=== PATIENT | male | born 1990 | race Caucasian/White ===

== ENCOUNTER 2018-05-25 14:48 | Emergency (ER) | payer OTHER, SELFPAY ==
[2018-05-25 14:55] VITALS: BP 146/92; PULSE 86; RESP 18; TEMP 36.7; O2SAT 100; BMI 25.5
[2018-05-25 15:29] LABS: Hematocrit 45.4 % (41-53); Hemoglobin 15.6 g/dL (13.5-17.5); Mean Corpuscular HGB Conc 34.3 % (30-36); Mean Corpuscular Hemoglobin 30.7 PG (26-34); Mean Corpuscular Volume 89.4 fL (80-100); Platelet Count 236 X10^3/uL (150-400); Red Blood Cell Count 5.07 X10^6/uL (4.5-5.9); Red Cell Distribution Width 12.9 % (11.6-14.8); White Blood Cell Count 4.4 X10^3/uL (4.5-11.0)
[2018-05-25 15:47] LABS: Alanine Aminotransferase 40 IU/L (21-72); Albumin 4.9 g/dL (3.5-5.0); Albumin Globulin Ratio 1.9 (1.0-2.8); Alkaline Phosphatase 47 U/L (38-126); Aspartate Aminotransferase 40 IU/L (17-59); BUN Creatinine Ratio 12.9 (6-22); Bilirubin Total 0.5 mg/dL (0.2-1.3); Blood Urea Nitrogen 18 mg/dL (9-20); Calcium 9.8 mg/dL (8.4-10.2); Carbon Dioxide 32 mmol/L (22-32); Chloride 100 mmol/L (98-107); Creatine Kinase 706 U/L (55-170); Estimated Glomerular Filt Rate > 60.0 mL/min (>60); Globulin 2.6 g/dL (1.7-4.1); Glucose 90 mg/dL (70-100); HEMOLYSIS < 15 (0-50); Potassium 4.4 mmol/L (3.4-5.1); Sodium 142 mmol/L (137-145); Total Protein 7.5 g/dL (6.3-8.2)
[2018-05-25 16:00] LABS: Troponin I < 0.012 ng/mL (0.01-0.034)
[2018-05-25 16:02] LABS: CKMB % Relative Index 0.3 % (1.5-5.0); Creatine Kinase MB 2.03 ng/mL (<2.37)
[2018-05-25 17:05] LABS: Neutrophils Absolute Manual 2860 /uL (3000-5900); Total Cells Counted 100
[2018-05-25 17:06] LABS: RBC Morphology Normal Morphology
[2018-05-25 19:59] VITALS: BP 133/70; PULSE 55; RESP 13; O2SAT 98
--- NOTE | 2018-05-25 19:59 | DI.RAD.S_ITS ---
PROCEDURE: XR CHEST 1V INDICATIONS: Heart palpitations earlier today TECHNIQUE: One view of the chest was acquired. COMPARISON: None. FINDINGS: Surgical changes and devices: None. Lungs and pleura: No pleural effusions or pneumothorax. Lungs are clear. Mediastinum: Mediastinal contours appear normal. Heart size is normal. Bones and chest wall: No suspicious bony lesions. Overlying soft tissues appear unremarkable. IMPRESSION: 1. No acute cardiopulmonary disease. Dictated by: Ivan Jones M.D. on 05/25/2018 at 21:30 Approved by: Ivan Jones M.D. on 05/25/2018 at 21:31
--- NOTE | 2018-05-25 20:13 | PC.NURSE ---
PO fluids given to pt when placed in ED 7
--- NOTE | 2018-05-25 20:22 | PC.NURSE ---
Introduced self to pt. Pt w/o any complaints at this time. On bedside tele monitor x3. Will continue to monitor. Pt updated on POC.
[2018-05-25 20:55] LABS: Creatine Kinase 664 U/L (55-170)
[2018-05-25 21:10] LABS: CKMB % Relative Index 0.3 % (1.5-5.0); Creatine Kinase MB 1.69 ng/mL (<2.37)
--- NOTE | 2018-05-25 21:38 | ED_ITS ---
HPI - Arrhythmia/Palpitations <PADDY Courtney - Last Filed: 05/25/18 22:31> General Chief Complaint: Arrhythmia/Palpitations Stated Complaint: heart started racing,L arm numbness Time Seen by Provider: 05/25/18 18:10 History of Present Illness HPI narrative: 27-year-old healthy male here for complaint of feeling like his heart was racing earlier today. He was working out and just finished doing strength training lifting weights when he had 10 min of this sensation. Then it went away. He also states that he felt like he had tingling into his left arm. No nausea vomiting. He denied any chest pain. No shortness of breath symptoms have not returned since that initial episode. He does state that he has had this sensation few times in the past last time was 2 months ago he denies any stressors or relievers of his symptoms. No other concerns or complaints. MD complaint: heart racing Related Data Home Medications Medication Instructions Recorded Confirmed No Known Home Medications 05/25/18 05/25/18 Allergies Allergy/AdvReac Type Severity Reaction Status Date / Time No Known Drug Allergies Allergy Verified 05/25/18 15:02 Review of Systems <PADDY Courtney - Last Filed: 05/25/18 22:31> Constitutional Denies chills, Denies fever(s), Denies lethargy and Denies weakness Eyes Denies change in vision, Denies eye discharge, Denies irritation and Denies loss of vision ENT Ears, Nose, Mouth, and Throat: Denies change in voice, Denies neck pain and Denies sore throat Cardiovascular Denies chest pain, Reports rapid heart rate, Denies lightheadedness, Denies palpitations, Denies dyspnea, Denies dyspnea on exertion and Denies orthopnea Respiratory Denies cough, Denies dyspnea, Denies dyspnea on exertion and Denies wheezing Gastrointestinal Gastrointestinal: Denies abdominal pain, Denies change in bowel habits, Denies diarrhea, Denies nausea and Denies vomiting Genitourinary Denies hematuria, Denies flank pain, Denies urinary incontinence and Denies urinary urgency Musculoskeletal Denies neck pain Integumentary/Breasts Denies pruritus, Denies erythema, Denies rash and Denies wounds Neurologic Denies confusion, Denies loss of vision and Denies weakness Psychiatric Denies anxiety, Denies confusion, Denies depression, Denies homicidal ideation and Denies suicidal ideation Endocrine Denies palpitations Hematologic/Lymphatic Denies easy bruising Allergic/Immunologic Denies wheezing Exam <PADDY Courtney - Last Filed: 05/25/18 22:31> Initial Vital Signs Initial Vital Signs: Vital Signs Temperature 98.1 F 05/25/18 14:55 Pulse Rate 86 05/25/18 14:55 Respiratory Rate 18 05/25/18 14:55 Blood Pressure 146/92 H 05/25/18 14:55 Pulse Oximetry 100 05/25/18 14:55 Const General: cooperative and well developed Nutritional Appearance: well nourished Orientation: alert, awake, oriented x3 and not confused HENAR Mouth: oral mucosae normal and moist mucous membranes Eyes General: appearance normal, both eyes and all related structures Conjunctivae: conjunctivae normal Sclera: sclerae normal Pupils: PERRL EOM: EOM intact bilaterally Neck Neck: JVD Chest Chest: normal inspection of the chest Resp Effort & Inspection: normal respiratory effort, able to speak in complete sentences, no respiratory distress and no use of accessory muscles Auscultation: clear to auscultation bilaterally, no rales, no rhonchi and no wheezes Cardio Rate: regular rate Rhythm: regular rhythm Heart Sounds: no click, no gallops, no murmurs and no rubs Pulses: normal peripheral pulses GI Inspection: non-distended Palpation: soft, no hepatosplenomegaly, No guarding, No pulsatile mass and No tender Auscultation: normal bowel sounds Back/Spine/Pelvis Back: CVA tenderness Skin General: no rashes or lesions noted, No jaundice and No petechiae Neuro General: alert, oriented x3, gait normal and no focal motor deficits Speech: speech normal Psych Attitude: cooperative Thought Content: suicidality <Jessica Palacios DO - Last Filed: 05/27/18 18:49> Initial Vital Signs Initial Vital Signs: Vital Signs Temperature 98.1 F 05/25/18 14:55 Pulse Rate 86 05/25/18 14:55 Respiratory Rate 18 05/25/18 14:55 Blood Pressure 146/92 H 05/25/18 14:55 Pulse Oximetry 100 05/25/18 14:55 Course <PADDY Courtney - Last Filed: 05/25/18 22:31> Orders Ordered: ED Orders 05/25/18 15:21 CBC manual diff [Complete Blood Count MAN DIFF] Stat Comprehensive Metabolic Panel Stat Troponin & CK Cardiac Panel Stat 05/25/18 19:59 XR chest 1V Stat 05/25/18 20:26 Troponin & CK Cardiac Panel Stat Vital Signs - 8 hr 05/25/18 14:55 05/25/18 19:59 05/25/18 22:10 Temperature 98.1 F Pulse Rate 86 55 L 60 Respiratory Rate 18 13 15 Blood Pressure 146/92 H Blood Pressure [Left Arm] 133/70 H 129/76 H Pulse Oximetry 100 98 100 <Jessica Palacios DO - Last Filed: 05/27/18 18:49> Orders Ordered: ED Orders 05/25/18 15:21 CBC manual diff [Complete Blood Count MAN DIFF] Stat Comprehensive Metabolic Panel Stat Troponin & CK Cardiac Panel Stat 05/25/18 19:59 XR chest 1V Stat 05/25/18 20:26 Troponin & CK Cardiac Panel Stat Vital Signs - 8 hr 05/25/18 14:55 05/25/18 19:59 05/25/18 22:10 Temperature 98.1 F Pulse Rate 86 55 L 60 Respiratory Rate 18 13 15 Blood Pressure 146/92 H Blood Pressure [Left Arm] 133/70 H 129/76 H Pulse Oximetry 100 98 100 MDM - Arrhythmia/Palpitations <PADDY Courtney - Last Filed: 05/25/18 22:31> Lab Data Result diagrams: 05/25/18 15:21 05/25/18 15:21 Lab Results 05/25/18 05/25/18 05/25/18 Range/Units 15:21 15:21 20:26 WBC 4.4 L (4.5-11.0) X10^3/uL RBC 5.07 (4.5-5.9) X10^6/uL Hgb 15.6 (13.5-17.5) g/dL Hct 45.4 (41-53) % MCV 89.4 (80-100) fL MCH 30.7 (26-34) PG MCHC 34.3 (30-36) % RDW 12.9 (11.6-14.8) % Plt Count 236 (150-400) X10^3/uL Total Counted 100 Seg Neutrophils % 64.0 (38-70) % Band Neutrophils % 1.0 L (3-7) % Lymphocytes % (Manual) 28.0 (25-45) % Monocytes % (Manual) 6.0 (2-11) % Eosinophils % (Manual) 1.0 L (2-4) % Neutrophils # (Manual) 2860 L (8821-1972) /uL RBC Morphology Normal morphology Sodium 142 (137-145) mmol/L Potassium 4.4 (3.4-5.1) mmol/L Chloride 100 (98-107) mmol/L Carbon Dioxide 32 (22-32) mmol/L BUN 18 (9-20) mg/dL Creatinine 1.40 H (0.66-1.25) mg/dL Estimated GFR > 60.0 (>60) mL/min BUN/Creatinine Ratio 12.9 (6-22) Glucose 90 (70-100) mg/dL Calcium 9.8 (8.4-10.2) mg/dL Total Bilirubin 0.5 (0.2-1.3) mg/dL AST 40 (17-59) IU/L ALT 40 (21-72) IU/L Alkaline Phosphatase 47 (38-126) U/L Total Creatine Kinase 706 H 664 H (55-170) U/L CK-MB (CK-2) 2.03 1.69 (<2.37) ng/mL CK-MB (CK-2) Rel Index 0.3 L 0.3 L (1.5-5.0) % Troponin I < 0.012 < 0.012 (0.01-0.034) ng/mL Total Protein 7.5 (6.3-8.2) g/dL Albumin 4.9 (3.5-5.0) g/dL Globulin 2.6 (1.7-4.1) g/dL Albumin/Globulin Ratio 1.9 (1.0-2.8) Imaging Data Chest x-ray: Radiologist's impression: PROCEDURE: XR CHEST 1V INDICATIONS: Heart palpitations earlier today TECHNIQUE: One view of the chest was acquired. COMPARISON: None. FINDINGS: Surgical changes and devices: None. Lungs and pleura: No pleural effusions or pneumothorax. Lungs are clear. Mediastinum: Mediastinal contours appear normal. Heart size is normal. Bones and chest wall: No suspicious bony lesions. Overlying soft tissues appear unremarkable. IMPRESSION: 1. No acute cardiopulmonary disease. Dictated by: Ivan Jones M.D. on 05/25/2018 at 21:30 Approved by: Ivan Jones M.D. on 05/25/2018 at 21:31 ECG Data Interpretation: EKG shows normal sinus rhythm with no ST elevation or depression. No ectopy. Ventricular rate of 75. Pr interval of 168. QRS duration of 80 QT of 358 MDM Narrative Medical decision making narrative: CK of 1st evaluation was elevated at 700. Troponin was negative. Repeat CK was elevated however reduced to 660. Believe the CK is elevated due to strength conditioning today. EKG was unremarkable. Chest x-ray was unremarkable. Both sets of troponin were negative. Differential between a brief episode of a arrhythmia or anxiety related. Recommend patient follow up with primary care provider in the next day or 2 for re-evaluation and referral for stress test/tread mill test to see if his symptoms are reproducible. Also recommended BETINA testing to rule out that this is anxiety related. Return emergency room for any worsening symptoms. <Jessica Palacios, - Last Filed: 05/27/18 18:49> Lab Data Attestation: I reviewed the patient's lab results. Lab Results 05/25/18 05/25/18 05/25/18 Range/Units 15:21 15:21 20:26 WBC 4.4 L (4.5-11.0) X10^3/uL RBC 5.07 (4.5-5.9) X10^6/uL Hgb 15.6 (13.5-17.5) g/dL Hct 45.4 (41-53) % MCV 89.4 (80-100) fL MCH 30.7 (26-34) PG MCHC 34.3 (30-36) % RDW 12.9 (11.6-14.8) % Plt Count 236 (150-400) X10^3/uL Total Counted 100 Seg Neutrophils % 64.0 (38-70) % Band Neutrophils % 1.0 L (3-7) % Lymphocytes % (Manual) 28.0 (25-45) % Monocytes % (Manual) 6.0 (2-11) % Eosinophils % (Manual) 1.0 L (2-4) % Neutrophils # (Manual) 2860 L (2194-5904) /uL RBC Morphology Normal morphology Sodium 142 (137-145) mmol/L Potassium 4.4 (3.4-5.1) mmol/L Chloride 100 (98-107) mmol/L Carbon Dioxide 32 (22-32) mmol/L BUN 18 (9-20) mg/dL Creatinine 1.40 H (0.66-1.25) mg/dL Estimated GFR > 60.0 (>60) mL/min BUN/Creatinine Ratio 12.9 (6-22) Glucose 90 (70-100) mg/dL Calcium 9.8 (8.4-10.2) mg/dL Total Bilirubin 0.5 (0.2-1.3) mg/dL AST 40 (17-59) IU/L ALT 40 (21-72) IU/L Alkaline Phosphatase 47 (38-126) U/L Total Creatine Kinase 706 H 664 H (55-170) U/L CK-MB (CK-2) 2.03 1.69 (<2.37) ng/mL CK-MB (CK-2) Rel Index 0.3 L 0.3 L (1.5-5.0) % Troponin I < 0.012 < 0.012 (0.01-0.034) ng/mL Total Protein 7.5 (6.3-8.2) g/dL Albumin 4.9 (3.5-5.0) g/dL Globulin 2.6 (1.7-4.1) g/dL Albumin/Globulin Ratio 1.9 (1.0-2.8) ECG Data Attestation: I personally reviewed and interpreted this ECG as follows: Prior ECG tracings: not available for review Interpretation: Normal sinus rhythm rate [address]-T changes of partial right bundle branch block no T-wave inversions Discharge Plan Departure Patient Disposition: Home, Self-Care Clinical Impression: Palpitations Discharge Date/Time: 05/25/18 22:32 Interventions: ED Discharge Assessment Last Done: 05/25/18 22:32 Instructions: DI for Anxiety -- Adult Activity Restrictions/Additional Instructions: Laboratory results show elevated CK however believe this is due to a muscle damage from work out today. Otherwise cardiac enzymes were negative chest x- ray was negative in EKG was normal. Recommend following up with her primary care provider in the next day or 2 for re-evaluation and consideration for further testing such as stress test/treadmill test and anxiety evaluation. Return emergency room for any worsening symptoms. Prescriptions: No Action No Known Home Medications RF: 0 Referrals: [facility] [Provider Group]
[2018-05-25 21:49] LABS: Troponin I < 0.012 ng/mL (0.01-0.034)
[2018-05-25 22:10] VITALS: BP 129/76; PULSE 60; RESP 15; O2SAT 100
== END 2018-05-25 22:32 | disposition home or self-care (01) ==
PROVIDERS: Emergency Medicine; Emergency Provider Nurse Practitioner Family
DX: R00.2 Palpitations (principal)
CPT/HCPCS: 36415; 71045; 80053; 82550; 82553; 84484; 85025; 93005; 99282; 99285

== ENCOUNTER → 2018-11-13 09:34 | Outpatient (CLI) | payer OTHER, SELFPAY ==
--- NOTE | 2018-11-13 | DI.ECHO.S_ITS ---
[place] [facility]---------+ [facility] +---------+ : : [address] : : : : [id number] : : : : Phone: [phone] Echocardiogram Report + + :Name: LEYDA QUIROS Study Date: 11/13/2018 Height: 70 in : :[facility] Exam Location: [facility] Weight: 175 lb : : Gender: Male BSA: 2.0 m2 : :: 1990 Age: 28 yrs BP: 140/90 mmHg: :Reason For Study: Arrhythmia : : Performed By: Nancy Page : :Referring: CAITLIN FIGUEROA : + + Interpretation Summary Normal echo study. Procedure: A two-dimensional transthoracic echocardiogram with color flow and Doppler was performed. The study quality was technically good. There is no prior echocardiogram noted for this patient. The patient was in normal sinus rhythm during the exam. Left Ventricle: The left ventricle is normal in size, wall thickness, and systolic function without any focal wall motion abnormalities. The ejection fraction is estimated to be 55-60%. Diastolic parameters suggest probable normal left ventricular diastolic function and normal filling pressures. Right Ventricle: The right ventricle is normal in size and function. Atria: Both atria are normal in size. The interatrial septum is intact with no evidence for an atrial septal defect. Mitral Valve: The mitral valve is normal in structure and function. There is trace mitral regurgitation. Aortic Valve: The aortic valve is trileaflet. The aortic valve opens well. No aortic regurgitation is present. Tricuspid Valve: The tricuspid valve is normal in structure and function. There is a trace or physiologic amount of tricuspid regurgitation. Pulmonary artery pressures cannot be estimated because of the lack of a measurable TR jet velocity. Pulmonic Valve: The pulmonic valve is not well seen, but is grossly normal. There is trace pulmonic regurgitation. Great Vessels: The aortic root is normal size. The dimensions of the ascending aorta are normal. The aortic arch is normal in size. The pulmonary artery is normal size. The IVC is of normal diameter and collapses greater than 50% with a sniff. This suggests a low right atrial pressure of 3 mm Hg. Pericardium/ Pleura There is no pericardial effusion. There is no pleural effusion. MMode/2D Measurements & Calculations LVIDd: 5.2 cm Ao root diam: 3.2 cm LVIDs: 3.7 cm asc Aorta Diam: 2.6 cm FS: 29.6 % Ao Arch Diam (Prox Trans): 2.2 cm EPSS: 0.65 cm IVSd: 0.73 cm LVPWd: 0.85 cm LV amanda. diameter/BSA (cm/m^2): 2.6 LV sys. diameter/BSA (cm/m^2): 1.9 LA A2 area: 17.6 cm2 RA long axis: 5.1 cm LA A4 area: 17.0 cm2 RA area: 19.4 cm2 LA length (vol): 5.8 cm RA vol: 62.9 ml LA vol: 44.0 ml RA : 31.9 ml/m2 LA vol index: 22.3 ml/m2 RVD1 (basal): 3.7 cm Doppler Measurements & Calculations Ao V2 max: 135.5 cm/sec LVOT Max Victoriano: 103.1 cm/sec Ao V2 mean: 99.1 cm/sec LV V1 max P.3 mmHg Ao max P.3 mmHg LV V1 VTI: 17.7 cm Ao mean P.2 mmHg sev ratio: 0.81 Ao V2 VTI: 22.0 cm MV E max victoriano: 58.7 cm/sec PA V2 max: 77.2 cm/sec MV A max victoriano: 33.2 cm/sec PA V2 mean: 55.0 cm/sec MV E/A: 1.8 PA mean P.3 mmHg Med Peak E' Victoriano: 11.2 cm/sec PA Accel Time: 0.12 sec E/E' med: 5.2 Lat Peak E' Victoriano: 13.4 cm/sec E/E' lat: 4.4 E/e' average: 4.8 MV dec time: 0.22 sec MV P1/2t: 64.4 msec MV P1/2t max victoriano: 59.7 cm/sec MVA(P1/2t): 3.4 cm2 Electronically signed by: Sinan Cullen on Reading Physician:11/13/2018 11:40 AM
== END ==
PROVIDERS: Visit Provider Physician Assistant
DX: I49.9 Cardiac arrhythmia, unspecified (principal)
CPT/HCPCS: 93306